=== PATIENT | female | born 1955 | race Caucasian/White ===

== ENCOUNTER 2024-01-17 07:10 | Outpatient (REF) | payer BC, SELFPAY ==
--- NOTE | ~2024-01-17 | XR_ITS ---
EXAMINATION: XR KNEE, LEFT CLINICAL INFORMATION: Pain in left knee. COMPARISON: None available. TECHNIQUE: Three views of the left knee. FINDINGS: The bones are diffusely demineralized status post total knee arthroplasty. Hardware appears intact. Alignment maintained. Suprapatellar effusion with prepatellar soft tissue swelling. XR/XR knee LT 3V IMPRESSION: 1. Status post total knee arthroplasty. Hardware appears intact. Alignment maintained. 2. Suprapatellar effusion with prepatellar soft tissue swelling.
== END 2024-01-17 07:11 | disposition home or self-care (01) ==
LOC: HO.HOSX 07:10
PROVIDERS: Visit Provider Orthopaedic Surgery
DX: M25.562 Pain in left knee (principal)
CPT/HCPCS: 73562

== ENCOUNTER 2024-01-17 14:21 | Outpatient (AMB) | payer BC, SELFPAY ==
--- NOTE | 2024-01-17 14:24 | MHC.OFFVIS ---
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 Patient reports her pain has been going on for about 4 days and is a 5 on the 1-10 pain scale. She states she fell on monday. The patient has undergone left total knee replacement surgery in the past. She has been taking Tylenol which gives her fairly good relief. She has not yet returned to work at [employer]. Allergies colchicine Allergy (Intermediate, Verified 01/17/24 14:41) rash Medication List - Last Reconciled 01/17/24 by Buster Guadarrama MD allopurinol 300 mg PO DAILY cyclosporine 0.05% drps ophthalmic (eye) ergocalciferol (vitamin D2) 1,250 mcg PO QWEEK lithium carbonate 300 mg PO DAILY lorazepam 1 mg PO QID PRN metoprolol succinate ER 100 mg PO DAILY PFSH Surgical History (Updated 01/17/24 @ 14:46 by Joie Baird CMA) Hx of left knee surgery Hx of hand surgery Social History (Updated 01/17/24 @ 14:43 by Joie Baird CMA) Patient Tobacco Use Status: Never used Tobacco Current occupational status: employed Current occupation: sales [employer], Right hand dominate Physical Exam Const Other: Well-nourished well-developed very friendly female awake alert and oriented x3 in no acute distress Extrem Other: Left knee examination shows ecchymosis along the medial aspect of her knee, full active extension, flexion to 115 degrees with mild discomfort, mild to moderate discomfort with valgus stress, no instability Results Reviewed Results Reviewed: X-rays of the patient's left knee taken today show a total knee arthroplasty in good position with no signs of loosening, no acute bony abnormalities Assessment & Plan Assessment & Plan (1) Left knee pain: Code(s): M25.562 - Pain in left knee Plan Ms. Mitchell presents with pain along the medial aspect of her left knee after a fall several days ago most likely due to sprain of her medial collateral ligament. I did have the patient fitted with a knee brace. I feel that the knee brace is a medical necessity in order to prevent future falls and to allow for her ligament injury to heal. The patient will contact me prior to her follow-up appointment in 6-8 weeks should any questions or concerns arise. I will clear her to return to work once her discomfort improves. Feel free to call me at any time should questions regarding her orthopedic management arise. I spent 22 minutes in reviewing the patient's records and imaging studies, seeing the patient and documenting in the medical record. Orders: Orders XR knee LT 3V 01/17/24 M25.562 - Pain in left knee Coding Level of Care Code Est Pt Level 2 (58965) Diagnoses Left knee pain M25.562
== END 2024-01-17 14:59 | disposition home or self-care (01) ==
PROVIDERS: PCP Nurse Practitioner Family; Visit Provider Orthopaedic Surgery
DX: M25.562 Pain in left knee (principal)
CPT/HCPCS: 99213

== ENCOUNTER 2024-01-31 14:44 | Outpatient (AMB) | payer BC, SELFPAY ==
--- NOTE | 2024-01-31 14:48 | MHC.OFFVIS ---
Intake Vital Signs 01/31/24 14:51 Height 5 ft 1 in Weight 230 lb BMI 43.5 Intake Visit Reasons: ov-lt knee follow up Intake Note: Angela is a 68 year old female who presents for a follow up of her Left knee pain after falling onto her knee several weeks ago. The patient reports minimal discomfort in her left knee. She states that over the last few days she has noticed redness along the distal aspect of her left lower leg. She has been wearing compression socks which help reduce her swelling. She denies any fevers or chills. Allergies colchicine Allergy (Intermediate, Verified 01/17/24 14:41) rash sulfamethoxazole [From Bactrim] Allergy (Intermediate, Verified 01/31/24 14:55) Rash trimethoprim [From Bactrim] Allergy (Intermediate, Verified 01/31/24 14:55) Rash Medication List - Last Reconciled 01/31/24 by Buster Guadarrama MD allopurinol 300 mg PO DAILY cyclosporine 0.05% drps ophthalmic (eye) ergocalciferol (vitamin D2) 1,250 mcg PO QWEEK lithium carbonate 300 mg PO DAILY lorazepam 1 mg PO QID PRN metoprolol succinate ER 100 mg PO DAILY PFSH Surgical History Hx of left knee surgery Hx of hand surgery Social History Patient Tobacco Use Status: Never used Tobacco Current occupational status: employed Current occupation: sales [employer], Right hand dominate Physical Exam Vital Signs: BMI result Body Mass Index 43.5 Const Other: Well-nourished well-developed very friendly female awake alert and oriented x3 in no acute distress Extrem Other: Left knee examination shows that the surgical incision is well healed, no erythema, full active extension and flexion to 115 degrees with minimal discomfort, her patella tracks well Left lower leg examination shows mild redness along the distal 3rd of her leg, no calf tenderness, no open skin lesions Assessment & Plan Assessment & Plan (1) Cellulitis of left leg: Code(s): L03.116 - Cellulitis of left lower limb Plan Ms. Mitchell presents with redness along the distal aspect of her left leg possibly due to early cellulitis. Thus, I will put the patient on antibiotics. The patient states that she may have had an allergic reaction to penicillins in the past. She has taken azithromycin without difficulty. I gave her a prescription for azithromycin to take over the next 5 days. She will contact me prior to her follow-up appointment in 3 weeks should her symptoms worsen in any way. Feel free to call me at any time should questions regarding her orthopedic management arise. I spent 19 minutes in reviewing the patient's records and imaging studies, seeing the patient and documenting in the medical record. Medications: New azithromycin start on day 2 of therapy 250 mg PO DAILY 6 tabs 0RF Coding Level of Care Code Est Pt Level 2 (33693) Diagnoses Cellulitis of left leg L03.116
[2024-01-31 14:51] VITALS: BMI 43.5
== END 2024-01-31 15:07 | disposition home or self-care (01) ==
PROVIDERS: PCP Nurse Practitioner Family; Referring Provider Nurse Practitioner Family; Visit Provider Orthopaedic Surgery
DX: L03.116 Cellulitis of left lower limb (principal)
CPT/HCPCS: 99214

== ENCOUNTER → 2024-01-31 14:44 | Outpatient (BNVA) | payer BC, SELFPAY | PROVIDERS: PCP Nurse Practitioner Family; Visit Provider Orthopaedic Surgery ==

== ENCOUNTER 2024-02-28 14:32 | Outpatient (AMB) | payer BC, SELFPAY ==
[2024-02-28 14:33] VITALS: BMI 43.5
--- NOTE | 2024-02-28 14:33 | A.OFFVIS_ITS ---
Vital Signs 02/28/24 14:33 Height 5 ft 1 in Weight 230 lb BMI 43.5 Intake Visit Reasons: ov-left knee pain Intake Note: Angela is a 68 year old female who presents with complaints of minimal discomfort in her left knee. She has completed the antibiotic she was taking for left lower leg cellulitis. She continues with her home stretching program. She does not take any medicines for discomfort. Allergies colchicine Allergy (Intermediate, Verified 02/28/24 14:38) rash sulfamethoxazole [From Bactrim] Allergy (Intermediate, Verified 02/28/24 14:38) Rash trimethoprim [From Bactrim] Allergy (Intermediate, Verified 02/28/24 14:38) Rash Medication List - Last Reconciled 02/28/24 by Buster Guadarrama MD allopurinol 300 mg PO DAILY azithromycin 250 mg PO DAILY cyclosporine 0.05% drps ophthalmic (eye) ergocalciferol (vitamin D2) 1,250 mcg PO QWEEK lithium carbonate 300 mg PO DAILY lorazepam 1 mg PO QID PRN metoprolol succinate ER 100 mg PO DAILY PFSH Surgical History Hx of left knee surgery Hx of hand surgery Social History Patient Tobacco Use Status: Never used Tobacco Current occupational status: employed Current occupation: [employer], Right hand dominate Physical Exam Vital Signs: BMI result Body Mass Index 43.5 Const Other: Well-nourished well-developed very friendly female awake alert and oriented x3 in no acute distress Extrem Other: Bilateral lower extremity examination shows good capillary refill, no skin lesions noted, normal sensation light touch Left knee examination shows that the surgical incision is well healed, no erythema, range of motion from -3 degrees to 115 degrees, her patella tracks w ell, the redness along her lower left leg is now resolved Assessment & Plan Assessment & Plan (1) Left knee pain: Code(s): M25.562 - Pain in left knee Category: Medical Plan Ms. Mitchell continues to do well after undergoing left total knee replacement surgery in spite of her recent fall. At this point her cellulitis has resolved. She will continue with her home stretching program. She does know to take antibiotics before any dental work. The patient does have intermittent right knee pain due to degenerative joint disease. At this point her right knee pain is tolerable to her. She will contact me prior to her annual follow-up appointment should any questions or concerns arise. Feel free to call me at any time should questions regarding her orthopedic management arise. I spent 21 minutes in reviewing the patient's records and imaging studies, seeing the patient and documenting in the medical record. Coding Level of Care Code Est Pt Level 3 (26880) Diagnoses Left knee pain M25.562
== END 2024-02-28 14:51 | disposition home or self-care (01) ==
PROVIDERS: PCP Nurse Practitioner Family; Visit Provider Orthopaedic Surgery
DX: M25.562 Pain in left knee (principal)
CPT/HCPCS: 99213

== ENCOUNTER → 2024-02-28 14:32 | Outpatient (BNVA) | payer BC, SELFPAY | PROVIDERS: PCP Nurse Practitioner Family; Visit Provider Orthopaedic Surgery ==

== ENCOUNTER 2024-04-23 09:21 | Outpatient (REF) | payer BC, SELFPAY ==
--- NOTE | ~2024-04-23 | XR_ITS ---
EXAMINATION: XR KNEE, RIGHT CLINICAL INFORMATION: Knee pain COMPARISON: None available. TECHNIQUE: Three views of the right knee. FINDINGS: Alignment is anatomic. Mild medial compartment joint space narrowing. Lateral compartment marginal spurring. Patellofemoral compartment joint space narrowing, evaluation limited on the provided views. No acute fracture or dislocation. No effusion. No suspicious soft tissue calcification. Vascular calcification. XR/XR knee RT 3V IMPRESSION: Tricompartment osteoarthritis. Mild medial compartment arthritis.
== END 2024-04-23 09:22 | disposition home or self-care (01) ==
LOC: HO.HOSX 09:21
PROVIDERS: Visit Provider Orthopaedic Surgery
DX: M25.561 Pain in right knee (principal)
CPT/HCPCS: 73562

== ENCOUNTER 2024-04-23 14:27 | Outpatient (AMB) | payer BC, SELFPAY ==
--- NOTE | 2024-04-23 14:40 | A.OFFVIS_ITS ---
Vital Signs 04/23/24 14:41 Height 5 ft 1 in Weight 230 lb BMI 43.5 Intake Visit Reasons: Newprob-Right knee pain Intake Note: Angela is a 68 year old female who presents with complaints of progressively worsening right knee pain. She describes her pain as sharp in nature. She did undergo left total knee replacement surgery in the past. She reports minimal discomfort in her left knee. She has tried Tylenol and anti-inflammatory medicines which gave her minimal relief. She denies any locking or giving way. She has had cortisone injections in the past which gave her minimal relief. She wishes to hold off on right total knee replacement surgery for as long as possible. Allergies colchicine Allergy (Intermediate, Verified 02/28/24 14:38) rash sulfamethoxazole [From Bactrim] Allergy (Intermediate, Verified 02/28/24 14:38) Rash trimethoprim [From Bactrim] Allergy (Intermediate, Verified 02/28/24 14:38) Rash Medication List - Last Reconciled 04/24/24 by Buster Guadarrama MD allopurinol 300 mg PO DAILY azithromycin 250 mg PO DAILY cyclosporine 0.05% drps ophthalmic (eye) ergocalciferol (vitamin D2) 1,250 mcg PO QWEEK lithium carbonate 300 mg PO DAILY lorazepam 1 mg PO QID PRN metoprolol succinate ER 100 mg PO DAILY PFSH Surgical History Hx of left knee surgery Hx of hand surgery Social History Patient Tobacco Use Status: Never used Tobacco Current occupational status: employed Current occupation: [employer], Right hand dominate Physical Exam Vital Signs: BMI result Body Mass Index 43.5 Const Other: Well-nourished well-developed very friendly female awake alert and oriented x3 in no acute distress Extrem Other: Bilateral lower extremity examination shows good capillary refill, no skin lesions noted, normal sensation light touch Right knee examination shows a minimal effusion, palpable crepitus with range of motion, pain with range of motion, no instability Results Reviewed Results Reviewed: X-rays of the patient's right knee show moderate joint space narrowing most significant in the patellofemoral joint, no acute bony abnormalities Assessment & Plan Assessment & Plan (1) Arthritis of right knee: Code(s): M17.11 - Unilateral primary osteoarthritis, right knee Category: Medical Plan Ms. Mitchell presents with right knee pain due to degenerative joint disease. I had a lengthy discussion with the patient regarding treatment options. She wishes to hold off on right total knee replacement surgery for as long as possible. I agree with this plan. She has not gotten good relief from cortisone injections in the past. Thus, I will see whether or not the patient's insurance company will cover a viscosupplementation injection for her right knee. I will see her back once the injection is available. If she fails continued non operative treatments we will further discuss the risks and benefits of right total knee replacement surgery. Feel free to call me at any time should questions regarding her orthopedic management arise. I spent 21 minutes in reviewing the patient's records and imaging studies, seeing the patient and documenting in the medical record. Orders: Orders XR knee RT 3V 04/23/24 M25.561 - Pain in right knee Coding Level of Care Code Est Pt Level 3 (84507) Diagnoses Arthritis of right knee M17.11
[2024-04-23 14:41] VITALS: BMI 43.5
== END 2024-04-23 15:04 | disposition home or self-care (01) ==
PROVIDERS: PCP Nurse Practitioner Family; Visit Provider Orthopaedic Surgery
DX: M17.11 Unilateral primary osteoarthritis, right knee (principal)
CPT/HCPCS: 99213

== ENCOUNTER 2025-05-14 14:05 | Outpatient (AMB) | payer BC, SELFPAY ==
[2025-05-14 14:13] VITALS: BMI 43.5
--- NOTE | 2025-05-14 14:13 | A.OFFVIS_ITS ---
Vital Signs 05/14/25 14:13 Height 5 ft 1 in Weight 230 lb BMI 43.5 Intake Visit Reasons: Right knee pain Intake Note: Angela is a 69 year old female who presents with complaints of intermittent discomfort in her right knee. The patient states that she has been going to physical therapy at [facility] for chronic low back pain. She states that 1 of the back exercises seemed to have aggravated her right knee pain. She has stopped doing that exercise. Since that time her discomfort has improved significantly. She denies any locking or giving way. She wishes to hold off on right total knee replacement surgery for as long as possible. Allergies colchicine Allergy (Intermediate, Verified 05/14/25 14:14) rash sulfamethoxazole (From Bactrim) Allergy (Intermediate, Verified 05/14/25 14:14) Rash trimethoprim (From Bactrim) Allergy (Intermediate, Verified 05/14/25 14:14) Rash Medication List - Last Reconciled 05/14/25 by Buster Guadarrama MD allopurinol 300 mg PO DAILY azithromycin 250 mg PO DAILY cyclosporine 0.05% drps ophthalmic (eye) ergocalciferol (vitamin D2) 1,250 mcg PO QWEEK lithium carbonate 300 mg PO DAILY lorazepam 1 mg PO QID PRN metoprolol succinate ER 100 mg PO DAILY PFSH Surgical History Hx of left knee surgery Hx of hand surgery Social History Patient Tobacco Use Status: Never used Tobacco Current occupational status: employed Current occupation: [employer], Right hand dominate Physical Exam Vital Signs: BMI result Body Mass Index 43.5 Const Other: Well-nourished well-developed very friendly female awake alert and oriented x3 in no acute distress Extrem Other: Bilateral lower extremity examination shows good capillary refill, no skin lesions noted, normal sensation light touch Right knee examination shows a minimal effusion, palpable crepitus with range of motion, pain with range of motion, no instability Results Reviewed Results Reviewed: X-rays of the patient's right knee taken previously show joint space narrowing, subchondral sclerosis, no acute bony abnormalities Assessment & Plan Assessment & Plan (1) Right knee pain: Code(s): M25.561 - Pain in right knee Category: Medical Plan Ms. Mitchell presents with intermittent right knee discomfort due to degenerative joint disease. I had a lengthy discussion with the patient regarding the treatment options. At this point the patient's symptoms continue to improve with activity modification. We will hold off on an injection. She will follow up with me on an as-needed basis should her symptoms worsen in any way. I spent 22 minutes in reviewing the patient's records and imaging studies, seeing the patient and documenting in the medical record. Coding Level of Care Code Est Pt Level 3 (59761) Complex EM visit Add On G2211 Diagnoses Right knee pain M25.561
--- OUTSIDE RECORDS SUMMARY | 2025-05-14 14:51 | XMS_ITS | Clinical Summary ---
Author Organization [facility] Address [address] [place] [address] Care Team Providers Care Online Activist Name Role Phone Ubaldo Meyers MD Primary Care Provider [phone] Allergies Active Allergy Reactions Criticality Noted Date Comments Fexofenadine 09/29/2017 Amoxicillin 09/29/2017 Sulfamethoxazole-Trimethoprim 2016 Clindamycin 09/29/2017 Colchicine 09/29/2017 Epinephrine 09/29/2017 Triamcinolone 09/29/2017 Ketoprofen Other (See Comments) 09/29/2017 Lidocaine 09/29/2017 Medications Medication Sig Dispensed Refills Start Date End Date Status allopurinol (ZYLOPRIM) 300 MG tablet Take 300 mg by mouth daily. 0 04/11/2017 Active halobetasol (ULTRAVATE) 0.05 % cream apply LIBERALLY twice a day 0 05/12/2017 Active lithium carbonate 300 MG capsule 0 05/25/2017 Active LORazepam (ATIVAN) 1 MG tablet 0 04/07/2017 Active metoprolol succinate (TOPROL-XL) 24 hr tablet 100 mg take 1 tablet by mouth daily 0 05/11/2017 Active azithromycin (ZITHROMAX) 250 MG tablet Take 1 tab 2 times daily for 14 days 28 tablet 0 10/25/2017 Active AMITIZA 24 MCG capsule 0 01/01/2018 Active imipramine (TOFRANIL) 10 MG tablet 0 04/07/2021 Active ergocalciferol (VITAMIN D2) capsule 36922 units TAKE 1 CAPSULE BY MOUTH 1 TIME EVERY WEEK 0 03/01/2022 Active tiZANidine (ZANAFLEX) 4 MG capsule TAKE 1 CAPSULE BY MOUTH THREE TIMES DAILY NEEDED 0 04/27/2022 Active Active Problems Problem Noted Date Diagnosed Date Back pain of lumbar region with sciatica 018 Family History Medical History Relation Name Comments Cancer Father Diabetes Father Hypertension Father Arthritis Mother Diabetes Mother Hypertension Mother Relation Name Status Comments Father Mother Social History Tobacco Use Types Packs/Day Years Used Date Smoking Tobacco: Never Assessed Sex and Gender Information Value Date Recorded Sex Assigned at Not on file Gender Identity Not on file Sexual Orientation Not on file Job Start Date Occupation Industry Not on file Not on file Not on file Last Filed Vital Signs Vital Sign Reading Time Taken Comments Blood Pressure - - Pulse - - Temperature - - Respiratory Rate - - Oxygen Saturation - - Inhaled Oxygen Concentration - - Weight 110.7 kg (244 lb) 05/31/2022 8:33 AM EDT Height 162.6 cm (5' 4 ) 05/31/2022 8:33 AM EDT Body Mass Index 41.88 05/31/2022 8:33 AM EDT Plan of Treatment Health Maintenance Due Date Last Done Comments Hepatitis C Screening 1955 COVID-19 Vaccine (#1) 01[birth year]11/1957 Depression Screening 1968 BMI Counseling 1974 Preventative Health Evaluation 1974 DTap / Tdap / Td (1 - Tdap) 1975 Colon Cancer Screening (Colonoscopy) 2001 Breast Cancer Screening (Mammogram) 2006 Shingrix-Zoster Vaccine (1 of 2) 2006 Fall Risk Assessment 2021 Osteoporosis Screening (DEXA Scan) 2021 Pneumococcal Vaccine (1 of 1 - PCV) 2021 Influenza Vaccine (#1) 2025 RSV Adult > 60+ Yrs or Pregn ant (1 - 1-dose 75+ series) 2031 Hepatitis B Vaccines Aged Out No long er eligible based on patient's age to complete this topic RSV Ped < 20 months Aged Out No longe r eligible based on patient's age to complete this topic Care Teams Online Activist Relationship Specialty Start Date End Date Ubaldo Meyers MD [address] [place] [address] PCP - General Internal Medicine 05/26/17
--- OUTSIDE RECORDS SUMMARY | 2025-05-14 14:52 | XMS_ITS | Patient Health Record ---
Author Organization [facility] Address [address] [address] Care Team Providers Care Agent Licensing Clerk Name Role Phone PHILIPPE PASCUAL Unavailable [phone] Allergies Allergen (clinical drug ingredient) Drug/Non Drug Allergy documented on EMR Reaction Allergy Type Onset Date Status sulfamethoxazole / trimethoprim Bactrim Unknown Drug Allergy Active triamcinolone Kenalog Unknown Drug Allergy Act david Reason For Referral No Information Medications Medication SIG (Take, Route, Frequency, Duration) Notes Start Date End Date Status Vitamin B12 1000 MCG 1 tablet Orally Once a day Active Refresh Optive 0.5-0.9 % as directed Ophthalmic Active Vitamin D (Cholecalciferol) 50 MCG (2000 UT) 1 capsule Orally Once a day twice daily Active Allopurinol 300 MG 1 tablet Orally Once a day Active Restasis 0.05 % 1 drop into affected eye Ophthalmic Twice a day Active [place] Carbonate 300 MG 1 capsule at bedtime Orally Once a day Active LORazepam 1 MG 1 tablet at bedtime as needed Orally Once a day 2 tablets in morning and 2 at night as needed max is 6 tablets Active Vitamin D (Ergocalciferol) 35489 UNIT 1 capsule Orally Not-Taking Biotin 5000 Active Metoprolol Succinate 100 MG 1 capsule Orally Once a day Active Social History Tobacco Use: Social History Observation Description Date Details (start date - stop date) Never Smoker NA - NA Tobacco Use/Smoking Question Answer Notes Are you a nonsmoker Problems Problem Type SNOMED Code ICD Code Onset Dates Problem Status W/U Status Risk Notes Problem Morbid obesity (disorder) (357378980) Morbid (severe) obesity due to excess calories (E66.01) Active confirmed Problem Essential hypertension (38481973) Essential (primary) hypertension (I10) Active confirmed Problem Bipolar 1 disorder (268668396) Bipolar 1 disorder (F31.9) Active confirmed Problem Body mass index 40+ - morbidly obese (665264039) BMI 40.0-44.9, adult (Z68.41) Active confirmed Problem Body mass index 40+ - severely obese (670852722) Body mass index [BMI] 45.0-49.9, adult (Z68.42) Active confirmed Problem Idiopathic gout (91274842) Idiopathic gout, unspecified chronicity, unspecified site (M10.00) Active confirmed Problem Adult-onset obesity (938291971) Adult-onset obesity (E66.9) Active confirmed Plan Of Treatment No Information Insurance Providers Payer Name Payer Address Payer Phone Subscriber Number Group Number Insured Name Patient Relationship to Insured Coverage Start Date Coverage End Date [facility] [address] [place] [address] [id number] Angela Mitchell Self - patient is the insured Medical (General) History Medical History History ICD Code anxiety Surgical History Surgery Date(Month/Year) left knee replacement
--- OUTSIDE RECORDS SUMMARY | 2025-05-14 14:52 | XMS_ITS | Clinical Summary ---
Author Organization [facility] Address [address] [address] Phone Care Team Providers Care Assistant Sales Director Name Role Phone Rajinder Armstrong MD Primary Care Provider [phone] Allergies Active Allergy Reactions Criticality Noted Date Comments Clindamycin 09/29/2017 Colchicine Rash Low 03/01/2021 Epinephrine Other (see comments) 03/01/2021 Fexofenadine 09/29/2017 Ketoprofen Other (see comments) 03/01/2021 Sulfamethoxazole-Trimethoprim Other (see comments) 03/01/2021 Triamcinolone Other (see comments) 03/01/2021 Medications fexofenadine (JUVENTINO) 180 MG tablet Take 1 tablet by mouth 1 (one) time each day Active allopurinol (ZYLOPRIM) 300 MG tablet Take 1 tablet by mouth 1 (one) time each day Active Biotin 1000 MCG chewable tablet Chew 1 tablet 1 (one) time each day Active cyanocobalamin (VITAMIN B-12) 1000 MCG tablet Take 1 tablet by mouth 1 (one) time each day 9 Active famotidine (PEPCID) 20 MG tablet Take 1 tablet by mouth Active fluticasone (FLONASE) 50 MCG/ACT nasal spray Active lithium 300 MG capsule Take 1 capsule by mouth 1 (one) time each day in the evening Active LORazepam (ATIVAN) 1 MG tablet Take 1 mg by mouth 1 -2 tablets twice a day---no more than 6 tabs daily Active metoprolol succinate XL (TOPROL-XL) 100 MG 24 hr tablet Take 1 tablet by mouth 1 (one) time each day Active metroNIDAZOLE (METROGEL) 1 % gel APPLY SMALL AMOUNT TOPICALLY TO THE AFFECTED AREA EVERY DAY 1 Active Carboxymethylce llul-Glycerin (Refresh Optive) 0.5-0.9 % solution Administer into affected eye(s) Active Carboxymethylce llul-Glycerin (Refresh Optive) 1-0.9 % gel Apply to affected eye(s) Active mupirocin (BACTROBAN) 2 % ointment Apply topically 3 (three) times a day For 10 days 4 Active divalproex (DEPAKOTE) 250 MG EC tablet Take 250 mg by mouth in the morning and 250 mg in the evening and 250 mg before bedtime. Do not crush, chew, or split.. Active divalproex (DEPAKOTE) 250 MG EC tablet Take 250 mg by mouth in the morning and 250 mg in the evening and 250 mg before bedtime. Do not crush, chew, or split. Active ergocalciferol (Drisdol) 1.25 MG (93558 UT) capsule Take 1 capsule (50,000 Units total) by mouth every 14 (fourteen) days 6 capsule 3 5 Active Active Problems Problem Noted Date Diagnosed Date Bipolar disorder 03/01/2021 Stage 3a chronic kidney disease 03/01/2021 Long-term current use of lithium 03/01/2021 Hypertension 03/01/2021 Polyuria 03/01/2021 Chronic venous insufficiency 03/01/2021 Vitamin D deficiency 04/18/2018 Resolved Problems Problem Noted Date Diagnosed Date Resolved Date Acute nontraumatic kidney injury 03/01/2021 09/03/2023 Decreased renal function 03/01/202112/2020 Encounters Date Type Department Care Team Description 03/11/2025 Orders Only [facility] [address] [phone] Ovidio Pena MD 03/11/2025 Documentation Only [facility] [address] [phone] Ovidio Pena MD 03/06/2025 Office Communication [facility] [address] [address] [place] 03/04/2025 9:00 AM EDT Office Visit [facility] [address] [address] Ovidio Pena MD Stage 3a chronic kidney disease (HCC) (Primary Dx); Hypertension; Chronic venous insufficiency; Bipolar disorder, not otherwise specified (HCC); Long-term current use of lithium; Polyuria; Vitamin D deficiency, not otherwise specified 03/04/2025 Orders Only [facility] [address] [address] Ovidio Pena MD Stage 3a chronic kidney disease (HCC); Polyuria; Hypertension; Chronic venous insufficiency; Long-term current use of lithium 02/26/2025 Orders Only [facility] [address] [phone] Ovidio Pena MD from Last 3 Months Family History Medical History Relation Comments Diabetes Father Hypertension Father Kidney disease Father dialysis Hypertension Mother Relation Status Comments Father Mother Social History Tobacco Use Types Packs/Day Years Used Date Smoking Tobacco: Never Smokeless Tobacco: Never Alcohol Use Standard Drinks/Week Comments No 0 (1 standard drink = 0.6 oz pur e alcohol) Comments Unknown Sex and Gender Information Value Date Recorded Sex Assigned at Not on file Legal Sex Female 4:50 PM EST Gender Identity Not on file Sexual Orientation Not on file Last Filed Vital Signs Vital Sign Reading Time Taken Comments Blood Pressure 140/70 03/04/2025 9:16 AM EDT Pulse 66 03/04/2025 9:16 AM EDT Temperature - - Respiratory Rate - - Oxygen Saturation 95% 03/04/2025 9:16 AM EDT Inhaled Oxygen Concentration - - Weight 103 kg (227 lb) 03/04/2025 9:16 AM EDT Height 154.9 cm (5' 1 ) 09/04/2024 9:17 AM EST Body Mass Index 42.89 09/04/2024 9:17 AM EST Plan of Treatment Upcoming Encounters Date Type Department Care Team (Late st Contact Info) Description 09/04/2025 9:00 AM EST Office Visit [facility] [address] [phone] Ovidio Pena MD [address] [phone] Health Maintenance Due Date Last Done Comments Breast Cancer Screening 1955 Pneumococcal Vaccine: 50+ Ye ars (1 of 2 - PCV) 1975 Colorectal Cancer Screening: Annual FOBT 2005 Colorectal Cancer Screening: Colonoscopy 2005 Colorectal Cancer Screening: Sigmoidoscopy 2005 Influenza Vaccine (#1) 2025 Hepatitis B Vaccine Aged Out No longe r eligible based on patient's age to complete this topic Procedures Procedure Name Priority Date/Time Associated Diagnosis Comments PTH, INTACT Routine 02/26/2025 8:40 AM EDT LITHIUM LEVEL Routine 02/26/2025 8:40 AM EDT MAGNESIUM Routine 02/26/2025 8:40 AM EDT PHOSPHATE ( PHOSPHORUS) Routine 02/26/2025 8:40 AM EDT URIC ACID Routine 02/26/2025 8:40 AM EDT VITAMIN D 25 HYDROXY Routine 02/26/2025 8:40 AM EDT PROTEIN / CREATININE RATIO, URINE Routine 02/26/2025 8:40 AM EDT COMPREHENSIVE METABOLIC PANEL Routine 02/26/2025 8:40 AM EDT CBC AND DIFFERENTIAL Routine 02/26/2025 8:40 AM EDT from Last 3 Months Results * (ABNORMAL) Protein, Total, Random Urine w/Creatinine (Protein/Creat Ratio) (02/26/2025 8:40 AM EDT) Creatinine, Ur 27.6 Not Estab. mg/dL [facility] Protein, Ur 8.0 Not Estab. mg/dL [facility] [place] Urine Protein/Creati nine Ratio 290(H) 0 - 200 mg/g creat [facility] 02/26/2025 8:40 AM EDT 02/26/2025 Ovidio Pena MD LAB URINE ORDERABLES Final Re sult Performing Organization Address City/[facility] Co de Phone Number [facility] [place] [address] [place] [address] * (ABNORMAL) Vitamin D 25 Hydroxy (02/26/2025 8:40 AM EDT) Vitamin D, 25-OH, Total 25.1(L) 30.0 - 100.0 ng/mL [facility] Comment: Vitamin D deficiency has been defined by the Gomer of Medicine and an Endocrine Society practice guideline as a level of serum 25-OH vitamin D less than 20 ng/mL (1,2). The Endocrine Society went on to further define vitamin D insufficiency as a level between 21 and 29 ng/mL (2). 1. IOM (Gomer of Medicine). 2010. Dietary reference intakes for calcium and D. [place]: The National Academies Press. 2. Alberto MF, Fredrick NC, Ashish LUGO, et al. Evaluation, treatment, and prevention of vitamin D deficiency: an Endocrine Society clinical practice guideline. JCEM. 2010; 96(7):1911-30. 02/26/2025 8:40 AM EDT 02/26/2025 us Ovidio Pena MD LAB BLOOD ORDERABLES Final Re sult [facility] [place] [address] [place] [address] * CBC and Differential (02/26/2025 8:40 AM EDT) [facility] Signature WBC 6.0 3.4 - 10.8 x10E3/uL [facility] [place] RBC 4.10 3.77 - 5.28 x10E6/uL [facility] Hemoglobin 12.8 11.1 - 15.9 g/dL [facility] Hematocrit 38.7 34.0 - 46.6 % [facility] MCV 94 79 - 97 fL [facility] MCH 31.2 26.6 - 33.0 pg [facility] MCHC 33.1 31.5 - 35.7 g/dL [facility] [place] RDW 12.5 11.7 - 15.4 % [facility] Platelets 188 150 - 450 x10E3/uL [facility] Neutrophils Relative 60 Not Estab. % [facility] Lymphocytes Relative 25 Not Estab. % [facility] Monocytes 8 Not Estab. % [facility] Eosinophils Relative 6 Not Estab. % [facility] Basophils Relative 1 Not Estab. % [facility] Neutrophils Absolute 3.6 1.4 - 7.0 x10E3/uL [facility] Lymphocytes Absolute 1.5 0.7 - 3.1 x10E3/uL [facility] Monocytes Absolute 0.5 0.1 - 0.9 x10E3/uL [facility] Eosinophils Absolute 0.4 0.0 - 0.4 x10E3/uL [facility] Basophils Absolute 0.1 0.0 - 0.2 x10E3/uL [facility] Immature Granulocytes 0 Not Estab. % [facility] Immature Grans (Absolute) 0.0 0.0 - 0.1 x10E3/uL [facility] 02/26/2025 8:40 AM EDT 02/26/2025 Ovidio Pena MD LAB BLOOD ORDERABLES Final Re sult Performing Organization Address City/[facility]/ZIP Co de Phone Number [facility] [place] [address] [place] [address] * Uric Acid (02/26/2025 8:40 AM EDT) Uric Acid 5.0 3.0 - 7.2 mg/dL [facility] Comment:Therapeutic target f or gout patients: <6.0 02/26/2025 8:40 AM EDT 02/26/2025 Ovidio Pena MD LAB BLOOD ORDERABLES Final Re sult Performing Organization Address [facility]/ZIP Co de Phone Number [facility] [place] [address] [place] [address] * Phosphorus (02/26/2025 8:40 AM EDT) Phosphorus 3.7 3.0 - 4.3 mg/dL [facility] [place] 02/26/2025 8:40 AM EDT 02/26/2025 us Ovidio Pena MD LAB BLOOD ORDERABLES Final Re sult Performing Organization Address City/[facility]/ZIP Co de Phone Number [facility] [place] [address] [place] [address] * (ABNORMAL) PTH, Intact (02/26/2025 8:40 AM EDT) PTH 102(H) 15 - 65 pg/mL [facility] 02/26/2025 8:40 AM EDT 02/26/2025 us Ovidio Pena MD LAB BLOOD ORDERABLES Final Re sult Performing Organization Address [facility]/ZIP Co de Phone Number [facility] [address] [place] [address] * Magnesium (02/26/2025 8:40 AM EDT) Magnesium 2.1 1.6 - 2.3 mg/dL [facility] 02/26/2025 8:40 AM EDT 02/26/2025 us Ovidio Pena MD LAB BLOOD ORDERABLES Final Re sult Performing Organization Address [facility] de Phone Number [facility] [address] [place] [address] * [place] level (02/26/2025 8:40 AM EDT) [place] Level 0.7 0.5 - 1.2 mmol/L [facility] Comment: A concentration of 0.5-0.8 mmol/L is advised for long-term use; concentrations of up to 1.2 mmol/L may be necessary during acute treatment. Detection Limit = 0.1 <0.1 indicates None Detected 02/26/2025 8:40 AM EDT 02/26/2025 us Ovidio Pena MD LAB BLOOD ORDERABLES Final Re sult Performing Organization Address [facility] Co de Phone Number [facility] [address] [place] [address] * (ABNORMAL) Comprehensive Metabolic Panel (02/26/2025 8:40 AM EDT) Glucose 95 70 - 99 mg/dL [facility] BUN 30(H) 8 - 27 mg/dL [facility] Creatinine 1.31(H) 0.57 - 1.00 mg/dL [facility] [place] eGFR CKD-EPI CR 2020 44(L) >59 mL/min/1.7 3 [facility] BUN/Creatinine Ratio 23 12 - 28 [facility] Sodium 140 134 - 144 mmol/L [facility] Potassium 5.2 3.5 - 5.2 mmol/L [facility] Chloride 106 96 - 106 mmol/L [facility] Bicarbonate (CO2) 20 20 - 29 mmol/L [facility] Calcium 9.4 8.7 - 10.3 mg/dL [facility] Total Protein 6.3 6.0 - 8.5 g/dL [facility] Albumin 4.1 3.9 - 4.9 g/dL [facility] Globulin 2.2 1.5 - 4.5 g/dL [facility] Total Bilirubin 0.4 0.0 - 1.2 mg/dL [facility] Alkaline Phosphatase 81 44 - 121 IU/L [facility] AST (SGOT) 17 0 - 40 IU/L [facility] ALT (SGPT) 14 0 - 32 IU/L [facility] 02/26/2025 8:40 AM EDT 02/26/2025 us Ovidio Pena MD LAB BLOOD ORDERABLES Final Re sult [facility] [address] [place] [phone] from Last 3 Months Insurance [facility] Care Teams Assistant Sales Director Relationship Specialty Start Date End Date Rajinder Armstrong MD [address] [place] [phone] PCP - General Internal Medicine 03/04/25
--- OUTSIDE RECORDS SUMMARY | 2025-05-14 14:52 | XMS_ITS ---
Author Name [facility] Organization Unknown Encounters Encounter Type Encounter Reason Primary Diagnosis Location Date Ambulatory [facility] 02/23/2023 Ambulatory [facility] 02/22/2023
--- OUTSIDE RECORDS SUMMARY | 2025-05-14 14:52 | XMS_ITS | Clinical Summary ---
Author Organization 175 [facility] Address [address] [place] [address] Phone Care Team Providers Care Varnish Dipper Name Role Phone Ubaldo Meyers MD Primary Care Provider [phone] Allergies Active Allergy Reactions Criticality Noted Date Comments Clindamycin 09/29/2017 Colchicine 09/29/2017 Fexofenadine 09/29/2017 Ketoprofen Unknown 09/29/2017 Sulfamethoxazole-Trimethoprim 2016 Triamcinolone 09/29/2017 Medications cycloSPORINE (RESTASIS) 0.05 % ophthalmic emulsion Administer 1 drop into both eyes 2 (two) times a day. 4 Active LORazepam (ATIVAN) 0.5 mg tablet 1 tablet (0.5 mg total). 4 Active LORazepam (ATIVAN) 1 mg tablet 1 tablet (1 mg total) 2 (two) times a day. Max Daily Amount: 2 mg 7 Active metoprolol succinate (TOPROL-XL) 100 mg 24 hr tablet Take 1 tablet (100 mg total) by mouth 1 (one) time each day. Active allopurinoL (ZYLOPRIM) 300 mg tablet Take 1 tablet (300 mg total) by mouth. 7 Active lithium 300 mg tablet Take 1 tablet (300 mg total) by mouth. Active carboxymethylce llulose-glycern 0.5-0.9 % drops Administer into affected eye(s). 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 Vitamin D deficiency 04/18/2018 Bipolar 1 disorder ([facility] [place] [facility] [place]) Obesity 04/06/2018 Ventral hernia without obstruction or gangrene 0 04/06/2018 Encounters Date Type Department Care Team Description 03/19/2025 12:26 PM EDT - 03/19/2025 11:59 PM EDT Hospital Encounter [facility] [address] [place] [address] Dorsalgia, unspecified Discharge Disposition: Home or Self Care 03/19/2025 12:22 PM EDT - 03/19/2025 11:59 PM EDT Hospital Encounter [facility] [address] [place] [address] Dorsalgia, unspecified Discharge Disposition: Home or Self Care from Last 3 Months Surgical History Surgery Date Site/Laterality Comments TONSILLECTOMY PROCEDURE: HISTORICAL TONSILLECTOMY TOTAL KNEE ARTHROPLASTY Left PROCEDURE: AR ARTHRP KNE CONDYLE&PLATU MEDIAL&LAT COMPARTMENTS JOINT REPLACEMENT PROCEDURE:JOINT REPLACEMENT Medical History Medical History Date Comments Hypertension 04/18/2018 DX:Hypertension 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 DX:TMJ syndrome Gout 04/18/2018 DX:Gout 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/18/2018 DX:DJD (degenerative joint d isease) of knee Total knee replacement status 04/18/2018 DX :Total knee replacement status CKD (chronic kidney disease) stage 3, GFR 30-59 ml/min ([facility] [place] [facility]28) 04/18/2018 DX:CKD (chronic kidney disea se) stage 3, GFR 30-59 ml/min ([facility] COMMENT: Reading likely related to lithium use Vitamin D deficiency 04/18/2018 DX:Vitamin D deficiency Chronic constipation 04/18/2018 DX:Chronic constipation Seasonal allergies 04/18/2018 DX:Seasonal a llergies Arthritis DX:Arthritis Gout DX:Gout Bipolar 1 disorder ([facility] [place], [facility] V28) DX:Bipolar 1 disorder (HCC) Eczema DX:Eczema Family History Medical History Relation Name Comments Cancer Father Diabetes Father Hypertension Father Multiple myeloma Father diabetes, d ialysis, Htn Stroke Maternal Grandmother Alzheimer's disease Mother HTN Arthritis Mother Diabetes Mother Hypertension Mother Relation Name Status Comments Father Maternal Grandmother Mother Social History Tobacco Use Types Packs/Day Years Used Date Smoking Tobacco: Never Assessed Alcohol Use Standard Drinks/Week Comments No 0 (1 standard drink = 0.6 oz pur e alcohol) Comments Unknown Sex and Gender Information Value Date Recorded Sex Assigned at Not on file Legal Sex Female 7:37 PM EST Gender Identity Not on file Sexual Orientation Not on file Obstetrics History Last Filed Vital Signs Vital Sign Reading Time Taken Comments Blood Pressure - - Pulse - - Temperature - - Respiratory Rate - - Oxygen Saturation - - Inhaled Oxygen Concentration - - Weight 109 kg (240 lb) 10/28/2024 9:33 AM EST Height 162.6 cm (5' 4 ) 10/28/2024 9:33 AM EST Body Mass Index 41.2 10/28/2024 9:33 AM EST Plan of Treatment Health Maintenance Due Date Last Done Comments Breast Cancer Screening 1955 DTaP,Tdap,and Td Vaccines (1 - Tdap) 1975 Zoster Vaccines (1 of 2) 1975 Pneumococcal Vaccine: 50+ Years (1 of 1 - PCV) 2006 RSV Immunization Adult Patients (1 - Risk 60-74 years 1-dose series) 2016 Colorectal Cancer Screening: Colonoscopy 10/07/2022 Depression Screening 10/07/2022 Falls Risk Assessment 10/07/2022 Hepatitis C Screening 10/07/2022 Osteoporosis Screening (Bone Density Screening) 10/07/2022 Social Influencers of Health Screening 10/07/2022 COVID-19 Vaccine ( season) 2024 11/21/2021, 01/16/2021, 12/19/2020 Influenza Vaccine (#1) 2025 Hypertension/CHF/CAD Annual BMP Blood Test 02/26/2026 02/26/2025, 02/26/2025, 01/22/2025, Additional history exists Cholesterol Screening (Lipid Panel) 01/22/2030 01/22/2025 HIB Vaccines Aged Out No longer eligi ble based on patient's age to complete this topic HPV Vaccines Aged Out No longer eligi ble based on patient's age to complete this topic Hepatitis A Vaccines Aged Out No long er eligible based on patient's age to complete this topic Hepatitis B Vaccines Aged Out No long er eligible based on patient's age to complete this topic IPV Vaccines Aged Out No longer eligi ble based on patient's age to complete this topic MMR Vaccines Aged Out No longer eligi ble based on patient's age to complete this topic Meningococcal ACWY Vaccine Aged Out N o longer eligible based on patient's age to complete this topic Meningococcal B Vaccine Aged Out No l onger eligible based on patient's age to complete this topic RSV Immunization Patients Under 20 months Aged Out No longer eligible based on patient's age to complete this topic Varicella Vaccines Aged Out No longer eligible based on patient's age to complete this topic Procedures Procedure Name Priority Date/Time Associated Diagnosis Comments XR LUMBAR SPINE 4+ VIEWS Routine 03/19/2025 12:58 PM EDT Dorsalgia, unspecified XR PELVIS 1-2 VIEWS Routine 03/19/2025 1 2:58 PM EDT Dorsalgia, unspecified COMPREHENSIVE METABOLIC PANEL Routine 01/22/2025 10:23 AM EDT Atrophic arthritis ([facility] V24, [facility] V28) Encounter for general adult medical examination with abnormal findings Routine general medical examination at a health care facility LIPID PANEL WITH REFLEX TO DIRECT LDL Routine 01/22/2025 10:23 AM EDT Atrophic arthritis ([facility] V24, [facility] V28) Encounter for general adult medical examination with abnormal findings Routine general medical examination at a health care facility Abnormal finding of blood chemistry, unspecified from Last 3 Months or Most Recently Relevant to Health Maintenance Results * XR Pelvis 1-2 Views (03/19/2025 12:58 PM EDT) Anatomical Region Laterality Modality Body, Pelvis Radiographic [place] ging 03/20/2025 5:10 PM EDT Impressions 03/20/2025 5:12 PM EDT No evidence of pelvic fracture. [id number] -------- FINAL REPORT -------- Dictated By: Lizeth Grajeda Dictated Date: 03/20/2025 17:10 ET Assigned Physician: Lizeth Grajeda Reviewed and Electronically Signed By: Lizeth Grajeda Signed Date: 03/20/2025 17:12 ET Workstation ID: [id number] Transcribed By: Self Edit Transcribed Date: 03/20/2025 17:10 ET Narrative 03/20/2025 5:12 PM EDT INDICATION: Pelvic pain FINDINGS: Single AP view of the pelvis obtained. No prior studies are available for comparison. No evidence of fracture. No focal lytic or sclerotic lesions. Mild degenerative changes. Procedure Note Lizeth Grajeda MD - 03/20/2025 INDICATION: Pelvic pain FINDINGS: Single AP view of the pelvis obtained. No prior studies areavailable for comparison. No evidence of fracture. No focal lytic or sclerotic lesions. Milddegenerative changes. IMPRESSION: No evidence of pelvic fracture. [id number] -------- FINAL REPORT -------- Dictated By: Lizeth Grajeda Dictated Date: 03/20/2025 17:10 ET Assigned Physician: Lizeth Grajeda Reviewed and Electronically Signed By: Lizeth Grajeda Signed Date: 03/20/2025 17:12 ET Workstation ID: [id number] Transcribed By: Self Edit Transcribed Date: 03/20/2025 17:10 ET Rajinder Armstrong MD IMG XR PROCEDURES Final Result * XR Lumbar Spine 4+ Views (03/19/2025 12:58 PM EDT) Anatomical Region Laterality Modality Spine, L-spine Radiographic [place] ging 03/20/2025 5:16 PM EDT Narrative 03/20/2025 5:19 PM EDT Indication: Back pain. Findings: 5 views of the lumbar spine were obtained. No prior studies are available for comparison. Scoliotic changes are noted with mild retrolisthesis of L2 on L3. Multilevel disc space narrowing with endplate sclerosis particularly along the superior endplate at the L3 level. Bilateral oblique views demonstrate hypertrophic facet arthropathy no definite lytic or sclerotic lesions. Mild wedge deformities of the T11 and T12 vertebral bodies appear degenerative. Conclusion: Degenerative changes without acute fracture. Depending on clinical scenario consider lumbar MRI for further evaluation. -------- FINAL REPORT -------- Dictated By: Lizeth Grajeda Dictated Date: 03/20/2025 17:16 ET Assigned Physician: Lizeth Grajeda Reviewed and Electronically Signed By: Lizeth Grajeda Signed Date: 03/20/2025 17:19 ET Workstation ID: [id number] Transcribed By: Self Edit Transcribed Date: 03/20/2025 17:16 ET Procedure Note Lizeth Grajeda MD - 03/20/2025 Indication: Back pain. Findings: 5 views of the lumbar spine were obtained. No prior studies areavailable for comparison. Scoliotic changes are noted with mild retrolisthesis of L2 on L3.Multilevel disc space narrowing with endplate sclerosis particularly alongthe superior endplate at the L3 level. Bilateral oblique views demonstratehypertrophic facet arthropathy no definite lytic or sclerotic lesions.Mild wedge deformities of the T11 and T12 vertebral bodies appeardegenerative. Conclusion: Degenerative changes without acute fracture. Depending on clinicalscenario consider lumbar MRI for further evaluation. -------- FINAL REPORT -------- Dictated By: Lizeth Grajeda Dictated Date: 03/20/2025 17:16 ET Assigned Physician: Lizeth Grajeda Reviewed and Electronically Signed By: Lizeth Grajeda Signed Date: 03/20/2025 17:19 ET Workstation ID: [id number] Transcribed By: Self Edit Transcribed Date: 03/20/2025 17:16 ET Rajinder Armstrong MD IMG XR PROCEDURES Final Result * (ABNORMAL) Lipid panel with reflex to direct LDL (01/22/2025 10:23 AM EDT) [facility] Cholesterol 188 0 - 200 mg/dL LAB CHEMISTRY METHOD 01/22/2025 1:50 PM EDT [facility] Triglycerides 310(H) 0 - 150 mg/dL LAB CHEMISTRY METHOD 01/22/2025 1:50 PM EDT [facility] HDL 39(L) >=40 mg/dL LAB CHEMISTRY METHOD 01/22/2025 1:50 PM EDT [facility] LDL Calculated 87 0 - 100 mg/dL LAB CHEMISTRY METHOD 01/22/2025 1:50 PM EDT [facility] VLDL Cholesterol [place] 62 mg/dL LAB CHEMISTRY METHOD 01/22/2025 1:50 PM EDT [facility] Non HDL Chol. (LDL+VLDL) 149(H) <145 mg/dL LAB CHEMISTRY METHOD 01/22/2025 1:50 PM EDT [facility] Chol/HDL Ratio 4.8(H) 0.0 - 4.4 LAB CHEMISTRY METHOD 01/22/2025 1:50 PM EDT [facility] Blood Venous blood specimen / Unknown Venipuncture / Unknown 01/22/2025 10:23 AM EDT 01/22/2025 11:34 AM EDT Clive POSADAS LAB BLOOD ORDERABLES Final Res ult [facility] [address] [place] [address], from Last 3 Months or Most Recently Relevant to Health Maintenance Insurance MEDICARE [facility] Care Teams Varnish Dipper Relationship Specialty Start Date End Date Ubaldo Meyers MD [address] [place] [phone] PCP - General Internal Medicine 01/13/18
--- OUTSIDE RECORDS SUMMARY | 2025-05-14 14:52 | XMS_ITS | Data Portability ---
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 Has bilateral nasal vestibulitis. [email or web address] Not available 07/03/2024 10:20:03 Plan of Treatment Reminders Order Date Submit Date Provider Last Modified By Organization Details Last Modified Time Details Appointments Establish ed 15 2024 09:45A M JAI SHEETS PA-C Not available Not available Not available Lab None recorded. Referral None recorded. Procedures None recorded. Surgeries None recorded. Imaging None recorded. Medication Orders mupirocin 2 % topical ointment 2023 024 [id number], [address] [place] [address], [phone], 07/03/2024 10:20:37 Patient TargetsNo targets recorded. Patient InstructionsNo instructions recorded. Reason for Referral None Reported. Results Created Date Observation Date Name Description Value Unit Range Abnormal Flag Note LastModifiedBy Organization Detail LastModifiedTime 06/20/2012/02/2022 imagi ng/di agnos tic resul t No observ ation record ed. [email or web address] Not Available 03:27:08 06/20/20 24 02/18/2022 imagi ng/di agnos tic resul t No observ ation record ed. [email or web address] Not Available 03:27:31 06/20/20 24 06/22/2022 imagi ng/di agnos tic resul t No observ ation record ed. [email or web address] Not Available 03:27:32 06/20/20 24 06/28/2023 imagi ng/di agnos tic resul t No observ ation record ed. [email or web address] Not Available 03:27:35 06/20/20 24 06/22/2022 audio gram No observ ation record ed. [email or web address] Not Available 03:28:57 07/03/20 audio gram No observ ation record ed. [email or web address] Not Available 01/2024 15:08:11 Result Notes None recorded. 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; Note: Date Diagnosed : 2 9:10 AM (H04.129) Not Available [facility] 4 02:34:56 Chronic rhinitis 97581985 Active 2021 Chronic rhinitis; Note: Date Diagnosed : 11/04/2021 2:58 PM (J31.0) Not Available [facility] 4 02:35:05 Disorder of nasal sinus 1163551 Active 2021 Other specified disorders of nose and nasal sinuses; Note: Date Diagnosed : 11/04/2021 2:58 PM (J34.89) Not Available [facility] 4 02:34:59 Disorder of the nose 01123264 Active 2021 Other specified disorders of nose and nasal sinuses; Note: Date Diagnosed : 11/04/2021 2:58 PM (J34.89) Not Available [facility] 4 02:34:59 Benign neoplasm of mouth region 346163005 Active 2021 Benign neoplasm of other parts of mouth; Note: Date Diagnosed : 2 9:10 AM (D10.39) Not Available [facility] 4 02:34:55 Chronic maxillary sinusitis 56314159 Active 2021 Chronic maxillary sinusitis ; Note: Date Diagnosed : 02/18/2022 9:42 AM (J32.0) Not Available [facility] 4 02:35:01 Sensorine ural hearing loss of bilateral ears 342303767 Active 2021 Sensorine ural hearing loss, bilateral ; Note: Date Diagnosed : 06/22/2022 3:17 PM (H90.3) Not Available [facility] 4 02:35:02 Bilateral tinnitus 24248102272 02 Active 2021 Tinnitus, bilateral ; Note: Date Diagnosed : 11/04/2021 2:59 PM (H93.13) Not Available [facility] 4 02:34:57 Nasal vestibuli tis 77867968 Active 2023 LEELEE HAMMONDS MD [address] [place] [address], [phone] , [place] - [facility] 10:19:18 Problem Notes None recorded. Procedures Surgical History Date Name Laterality Status Provider Name and Address Organization Details Recorded Time 07/03/20 24 Comp Audio with Tymps - 59153 & 55670 completed OLAYINKA MALLOY [address] [place] [address], [place], [address], [place] - [facility] 07/03/2024 09:53:56 total knee replacement completed Edwige Galvin [place] - [facility] 07/03/2024 09:35:54 Imaging Results None recorded. Procedure Notes None recorded. Medical Equipment None Reported. Allergies Allergen ID Allergen Name Allergen Category Reaction Reaction Severity Criticality Documentation Date Start Date Code Code System Note Provider Name and Address Organization Details Recorded Time 51817 Orudis medicatio n other Not available Not available 03/12/2024 7 RxNorm React ion: other react ion, Unkno wn; Not Available [facility] 4 01:01:53 85491 Bactrim medicatio n other Not available Not available 03/12/2024 58736 9 RxNorm React ion: other react ion, Unkno wn; Not Available [facility] 4 01:01:53 Medications Name Sig Start Date Stop Date Status Note LastModified by Organization Details LastModified Time azithromy santy 250 mg tablet TAKE 2 TABLETS BY MOUTH FOR 1 DAY THEN TAKE 1 TABLET BY MOUTH DAILY FOR 4 DAYS 07/03 completed Not Available Not Available Not Available Lidocaine Viscous 2 % mucosal solution 2022 active Medicati on ID: [id number] B rand Name: Lidocain e Viscous Send Method: E-Prescr ibed Sub s Allowed: subs OK Speci al Instruct ion: Apply 5mL to biopsy site every 3 hours as needed for pain Med icationG enericNa me: Lidocain e Viscous Not Available Not Available Not Available metoprolo l succinate ER 100 mg tablet,ex tended release 24 hr TAKE 1 TABLET BY MOUTH DAILY active Not Available Not Available No t Available acetamino phen 300 mg-codein e 30 mg tablet TAKE 1 TABLET BY MOUTH EVERY 6-8 HOURS NEEDED FOR DENTAL PAIN 07/03 completed Not Available Not Available Not Available lorazepam 0.5 mg tablet TAKE 1 TO 2 TABLETS BY MOUTH IN THE MORNING active Not Available Not Available No t Available lithium carbonate 300 mg capsule TAKE 1 CAPSULE BY MOUTH DAILY active Not Available Not Available No t Available doxycycli ne monohydra te 100 mg capsule 1 capsule by mouth twice a day 09/06 completed Medicati on ID: [id number] D uration Value: 10 Prescri bed By Name: Lon Dixon nd Name: doxycycl ine monohydr ate Send Method: E-Prescr ibed Sub s Allowed: subs OK Medic ationGen ericName : doxycycl ine monohydr ate Not Available Not Available Not Available allopurin ol 300 mg tablet active Not Available Not Available Not Available mupirocin 2 % topical ointment APPLY A SMALL AMOUNT TO NOSTRILS THREE TIMES DAILY FOR 10 DAYS active Not Available Not Available No t Available ergocalci ferol (vitamin D2) 1,250 mcg (50,000 unit) capsule TAKE 1 CAPSULE BY MOUTH 1 TIME EVERY WEEK 07/03 completed Not Available Not Available Not Available lorazepam 1 mg tablet TAKE 2 TABLETS BY MOUTH AT BEDTIME active Not Available Not Available No t Available cyclospor ine 0.05 % eye drops in a dropperet te INSTILL 1 DROP IN BOTH EYES TWICE DAILY 07/03 completed Not Available Not Available Not Available Vitals None Recorded Social History None recorded. Functional Status None recorded. Mental Status None recorded. Family History Nothing Reported. Medical History Condition Response Allergies/Hayfever Y Anxiety Y Rhinitis Y Hearing Loss Y Cancer Y GERD/Reflux Y Hypertension Y Gynecological HistoryNo gynecological history recorded. Obstetrics History GPAL:G 0 P 0 0 0 0 Past Encounters Encounter ID Performer Location Encounter Start Date Encounter Closed Date Diagnosis/Indication Diagnosis SNOMED-CT Code Diagnosis ICD10 Code Diagnosis Note [id number] LEELEE HAMMONDS MD [facility] [address] [address] 07/03/2024 09:19:33 07/03/2024 10:29:20 Sensorineural hearing loss of bilateral ears 283477770 H90.3 stable. 1 yr f/u with PA Bilateral tinnitus 27373 97717 102 H93.13 Audiologic al evaluation results: Right ear: Normal through 2 kHz sloping to moderately severe sensorineu ral hearing loss with excellent word recognitio n. Left ear: Normal through 3 kHz sloping to a moderate sensorineu ral hearing loss with excellent word recognitio n. Tympanomet ry: Right Ear:Type A Left Ear:Type A Nasal vestibulitis 99164 000 J34.89 Suggest warm compresses followed by mupirocin ointment 3 times daily. Call or message if any concerns Health Concerns Section Related Observation LastModified by Organization Detai ls LastModified Time None Recorded Concern Status LastModified by Organization Details LastModified Time None Recorded Advance Directives Directive None Recorded Payers Insurance Date Sequence Insurance Name Policy Number Policy [place] Covered Member ID [place] Member ID Guarantor Name 01/02/2025 1 [place] [facility] [place] [id number] Andre Mitchell [id number] Angela Mitchell Notes Date Note Type Note Provider Name and Address Organization Details Recorded Time 07/03/2024 text/html Hx of SNHL and bilateral tinnitus. Feels HL stable and tinnitus better. has exposure to dust and mortar at [employer]. Has some congestion but improved with salineHas nasal crusting in vestibule LEELEE VALENZUELA MD [address] [place] [address],[place] [address], [place], [phone], [place] [facility] 07/03/2024 10:22:32 OBGyn Episode No OBEpisode recorded.
== END 2025-05-14 14:48 | disposition home or self-care (01) ==
PROVIDERS: PCP Internal Medicine; Visit Provider Orthopaedic Surgery
DX: M25.561 Pain in right knee (principal)
CPT/HCPCS: 99213